=== PATIENT | female | born 1970 | race Caucasian/White ===

== ENCOUNTER → 2021-05-15 00:13 | Outpatient (CLI) | payer BC, SELFPAY ==
[2021-05-15 17:30] LABS: SARS-CoV-2 RNA PCR Negative
== END ==
PROVIDERS: Visit Provider Otolaryngology
DX: Z01.812 Encounter for preprocedural laboratory examination (principal); Z20.822 Contact with and (suspected) exposure to COVID-19
CPT/HCPCS: C9803; U0003; U0005

== ENCOUNTER 2021-05-18 01:11 | Day surgery (SDC) | payer BC, SELFPAY ==
[2021-05-12 16:43] VITALS: BMI 49.9
--- NOTE | 2021-05-12 17:05 | PC.NURSE ---
Report to the Outpatient Waiting Room, entrance under the green pavilion located off [facility], at time 0830 on date 05/18/21. OR Time:1030. - You and your visitor will be asked a series of questions to screen for COVID 19 for your protection. - A mask is required within the hospital. - Only one visitor is allowed at this time. Patient visitors will be guided where to wait when not with patient. Preoperative COVID Testing Requirements: No COVID Test needed if: (proof is required; if not received patient will have Rapid Test prior to entry) - Patient has received COVID Vaccine at least 14 days prior to procedure date or - Patient has positive COVID test result within last 90 days of surgery date. COVID Test needed if above criteria is not met If not COVID vaccinated a COVID test must be conducted within 72 hours of surgery and patient is asked to isolate self from time of testing until procedure. You will go to the [facility] for your COVID testing. The [facility] is located at the corner of [address] [facility]. You will only be called if COVID results are positive and your surgeon may reschedule your elective surgery date. COVID TEST 05/15/21 @0940 Patients may have clear liquids (water, carbonated beverages, clear teas, apple juice) until 3 hours prior to surgery with a maximum of 20 ounces. 0730 - No food from midnight until time of surgery - Infants may have breast milk until 4 hours before surgery, formula 6 hours prior to surgery. - Children will be allowed to drink immediately following surgery. If applicable, please bring a bottle or sippy cup to assist with drinking. Juice, water, soda, and popsicles are readily available. For infants on formula, please bring formula the day of surgery. Pacifiers are allowed. Take the following medications with a SIP of water the morning of surgery: EFFEXOR, SYNTHROID Medications to discontinue per physician MELOXICAM PER DR MASON OFFICE Date to take last dose PER ISABELLA OFFICE, PATIENT TO CALL Please no make-up, nail costa rican, hairspray, perfume, deodorant, or body powder the day of surgery. No jewelry (including any body piercings) or valuables the day of surgery, leave them at home. Please take a shower or bath the night before, or the morning of, surgery with an antibacterial soap. Wear comfortable, loose fitting clothing. Children are encouraged to wear pajamas. - Jewelry must be removed prior to entering the operating room. Rings and piercings that are not removed may be cut off. - The hospital will not accept responsibility for valuables. - Please leave all valuables, including medications, at home the day of surgery. If you are going home after surgery, a licensed log truck driver must drive you home. - NO public transportation without another adult. - We recommend that an adult stay with you for 24 hours following discharge. - We also recommend that you do not drive, make important decision, drink alcoholic beverages, or take any drugs that were not prescribed by your health care provider for at least 24 hours after your discharge time. For Pediatric surgeries, we recommend two adults accompany the child home (only one inside the building at this time). Follow any additional instructions given to you from your surgeon. Telephone instructions given to ÁNGEL PAULSON and asked if any additional questions and then verbalized understanding. Patient advised to call surgeon office or pre surgery nurse liaison [phone] if any additional questions.
--- NOTE | 2021-05-17 13:48 | P.PNAN_ITS ---
Anes - Initial Pre Proc Eval Procedure: Operation Date: 05/18/21 10:30 Proposed Procedures p Placement of Septal Button - Waldo Richard MD Date/Time: 05/17/21 13:48 Surgeon: Waldo Richard MD Pre Op Diagnosis: septal perforation Patient Data Age: 51 Gender: F Height: 1.65 m Weight: 136.08 kg Allergies Allergy/AdvReac Type Severity Reaction Status Date / Time paroxetine AdvReac Mild BEHAVIOR Verified 05/18/21 08:47 CHANGES INH Allergy Mild N&V, Uncoded 05/18/21 08:47 TWITCHING, ACHES Sweet Potato Allergy Mild HIVES Uncoded 05/18/21 08:47 Home Medications Medication Instructions Recorded Confirmed Type alprazolam 0.5 mg tablet 0.5 mg PO QHS PRN 05/05/21 05/12/21 History levothyroxine 125 mcg tablet 125 mcg PO DAILY 05/05/21 05/12/21 History albuterol sulfate [Ventolin HFA] 1 puff INHALATION PRN 05/12/21 05/18/21 History amitriptyline 10 mg PO DAILY 05/12/21 05/12/21 History hydroxyzine HCl 25 mg PO DAILY 05/12/21 05/12/21 History meloxicam 15 mg PO DAILY 05/12/21 05/12/21 History venlafaxine 150 mg PO DAILY 05/12/21 05/12/21 History Patient hx anesthesia problems: none Family hx anesthesia problems: none Results Review: All pre-operative results and documents have been reviewed as part of the pre-operative evaluation. [facility] Past Medical History Medical History Hypothyroidism Morbid obesity with BMI of 40.0-44.9, adult Smoker Family History Family History Mother Cancer Grandparent Thyroid disorder Social History Social History Smoking status: Current every day smoker Tobacco type: cigarettes Alcohol intake: current Substance use: never Substance use type: does not use Living arrangements: with family Anes - Eval Final PreProcedure Day of Procedure 05/17/21 13:48 Patient weight: obese Heart: regular rate and rhythm Lungs: clear to auscultation and normal air movement Airway: Mallampati scale class II Neurological: alert and oriented Last oral intake: >/= 8 hours ASA classification: III Emergent: no Anesthetic plan: proceed Anesthesia type and monitoring: general ETT Results Review: All pre-operative results and documents have been reviewed as part of the pre-operative evaluation. Informed Consent: The patient's anesthetic plan and its attendant risks and benefits were discussed with the patient/family/POA. Questions were solicited and answers provided to the satisfaction of the patient/family/POA.
[2021-05-18] VITALS (8 sets, daily range): BP systolic 102–138; BP diastolic 69–95; PULSE 79–89; RESP 12–18; TEMP 36.1–36.2; O2SAT 92–99
--- NOTE | 2021-05-18 05:50 | PM.HPGS ---
History of Present Illness History of Present Illness Consent: Risks, benefits, and alternatives have been discussed and questions answered. Patient agrees to proceed with procedure. Chief complaint: septal perforation Narrative: Edna Gonzales is a 51 year old female with a long history of repeated septal perforations Review of Systems Review of Systems: All systems reviewed & are unremarkable except as noted in HPI and below PMFSH Past Medical History Medical History Hypothyroidism Morbid obesity with BMI of 40.0-44.9, adult Smoker Family History Family History Mother Cancer Grandparent Thyroid disorder Social History Social History Smoking status: Current every day smoker Tobacco type: cigarettes Alcohol intake: current Substance use: never Substance use type: does not use Living arrangements: with family Meds Home Medications and Allergies Home Medications Medication Instructions Recorded Confirmed Type alprazolam 0.5 mg tablet 0.5 mg PO QHS PRN 05/05/21 05/12/21 History levothyroxine 125 mcg tablet 125 mcg PO DAILY 05/05/21 05/12/21 History albuterol sulfate [Ventolin HFA] 1 puff INHALATION PRN 05/12/21 05/12/21 History amitriptyline 10 mg PO DAILY 05/12/21 05/12/21 History hydroxyzine HCl 25 mg PO DAILY 05/12/21 05/12/21 History meloxicam 15 mg PO DAILY 05/12/21 05/12/21 History venlafaxine 150 mg PO DAILY 05/12/21 05/12/21 History Allergies Allergy/AdvReac Type Severity Reaction Status Date / Time paroxetine AdvReac Unknown BEHAVIOR Verified 05/12/21 16:35 CHANGES INH Allergy Unknown N&V, Uncoded 05/05/21 08:57 TWITCHING, ACHES Sweet Potato Allergy Unknown HIVES Uncoded 05/05/21 08:57 Exam Narrative: Chest clear heart without murmurs abdomen soft large septal perforation Assessment and Plan Additional Plan Plan is to plug the septal perforation
--- NOTE | 2021-05-18 05:51 | WPDHPUPDATE1 ---
History and Physical Update Update Date/Time: 05/18/21 05:51 History and Physical has been reviewed, including an updated exam of the patient. There are NO changes in the patient's condition. Risks, benefits, and alternatives have been discussed and questions answered. Patient agrees to proceed with procedure.
[2021-05-18] MEDS: LACTATED RINGERS 1,000 ML 30 ML IV CONT (09:22)
[2021-05-18] MEDS: ACETAMINOPHEN 500 MG TABLET 1000 MG PO (09:22)
[2021-05-18] MEDS: COCAINE HCL (*CRX) 4% TOP SOLN 4 ML VIAL 1 APPLIC TOPICAL (10:18)
[2021-05-18] MEDS: LIDO 1%/EPINEPHRINE 1:100,000 50 ML VIAL 10 ML INFILTRATE (10:19)
--- NOTE | 2021-05-18 10:33 | W.PM.PROC2 ---
Procedure Note - Detailed Date of Procedure 05/18/21 Pre-op Diagnosis septal perforation Post-op Diagnosis same Procedure Performed Placement of septal button Surgeon Waldo Richard MD Description of Procedure ter induction after induction of general anesthesia septal button was placed on both sides satisfactorily seated
== END 2021-05-18 12:12 | disposition home or self-care (01) ==
PROVIDERS: PCP Physician Assistant; Visit Provider Otolaryngology
PROC: (CPT 30520; principal; 2021-05-18 10:30)
DX: J34.89 Other specified disorders of nose and nasal sinuses (principal); E03.9 Hypothyroidism, unspecified; F17.210 Nicotine dependence, cigarettes, uncomplicated; E66.01 Morbid (severe) obesity due to excess calories; Z68.43 Body mass index [BMI] 50.0-59.9, adult
CPT/HCPCS: 30630; A9270; J0330; J1100; J1170; J2250; J2405; J2704; J3010; J7120